=== PATIENT | male | born 1960 | race Caucasian/White ===

== ENCOUNTER 2018-11-25 06:42 | Day surgery (SDC) | payer OTHER ==
[2018-11-25] VITALS (12 sets, daily range): BP systolic 108–143; BP diastolic 67–82; PULSE 60–72; RESP 16–18; Ht 165.1 cm; Wt 76.9 kg
[~2018-11-25] VITALS: Ht 165.1 cm; Wt 76.9 kg
[2018-11-25] MEDS ORDERED: AMLO5TAB4 PO (07:29)
[2018-11-25] MEDS ORDERED: ATOR20TA38 PO (07:29)
[2018-11-25] MEDS ORDERED: ACETAZOLAMIDE 250 MG TAB PO PRN (07:30)
[2018-11-25] MEDS ORDERED: PHENYLephrine 2.5% 15 ML OPH OPER SCH (07:30)
[2018-11-25] MEDS ORDERED: TROPICAMIDE 1% 15 ML OPH OPER SCH (07:30)
[2018-11-25] MEDS ORDERED: TETRACAINE 0.5% 4 ML OPH OPER SCH (07:30)
[2018-11-25] MEDS ORDERED: ACETAMINOPHEN 500 MG TAB PO ONE (07:30)
[2018-11-25] MEDS ORDERED: BALANCED SALT SOLN OPH IRRIG 500 ML, EPINEPHrine 0.1 MG, GENTAMICIN 4 MG, VANCOMYCIN 10 MG IRR SCH ×4 (07:30)
[2018-11-25] MEDS ORDERED: LIDOCAINE 4% (MPF) 5 ML INJ INJ SCH (07:30)
[2018-11-25] MEDS ORDERED: NEOMYC/POLYMYX/DEXAM 3.5GM OPH OINT OPER ONE (07:30)
--- NOTE | 2018-11-25 08:27 | PREAC ---
Date/Time of Note Date/Time of Note DATE: 11/25/18 TIME: 08:26 Anesthesia Eval and Record Evaluation Time Pre-Procedure Interview DATE: 11/25/18 TIME: 08:26 Age 58 Sex male NPO: 8 hrs Preoperative diagnosis AGE RELATED CATARACT Planned procedure RIGHT EYE KPE W/IOL Past Medical History Past Medical History: Includes Cardio: HTN, Dyslipidemia Endo: Diabetes Surgery & Anesthesia Issues No known issue Meds Anticoagulation: No Beta Shubham within 24 hr: No Reason Beta Shubham not given: Pt. not on B-Shubham Reported Medications Atorvastatin Calcium* (Atorvastatin Calcium*) 20 Mg Tablet, 20 MG PO QHS, #30 TAB 11/25/18 Amlodipine Besylate* (Norvasc*) 5 Mg Tablet, 5 MG PO DAILY, TAB 11/25/18 Current Medications Tropicamide (Mydriacyl 1%) 1 drop Q5 MIN X3 OPER Last administered on 11/25/18at 07:47; Admin Dose 1 DROP; Start 11/25/18 at 07:30 Phenylephrine HCl (Ak-Dilate 2.5%) 1 drop Q5 MIN X 3 OPER Last administered on 11/25/18at 07:47; Admin Dose 1 DROP; Start 11/25/18 at 07:30 Tetracaine HCl (Tetracaine 0.5% Steri-Unit Evelyn) 2 drop ONCE (PRE-OP) OPER ; Start 11/25/18 at 07:30 Lidocaine (Xylocaine 4% (Mpf)) 5 ml INTRA-OP INJ ; Start 11/25/18 at 07:30 Sod Cl/Ca Cl/Mg Cl/Pot Cl/ Epinephrine/ Gentamicin Sulfate/ Vancomycin HCl INTRA-OP IRR ; Start 11/25/18 at 07:30 Acetazolamide (Diamox) 250 mg POST-OP PRN PO X1 IF TRABECULECTOMY PERFORMED; Start 11/25/18 at 07:30 Meds reviewed: Yes Allergies Coded Allergies: No Known Allergy (Unverified , 11/25/18) Allergies Reviewed: Yes Labs/Studies Labs Reviewed: Reviewed by anesthesiologist test: N/A Studies: ECG, CXR Pre-procedure Exam Last vitals Vital Signs Date Temp Pulse Resp B/P (MAP) Pulse Ox O2 O2 Flow FiO2 Time Delivery Rate 11/25/18 98.2 72 16 143/81 97 Room Air 08:06 (101) Airway: Adequate mouth opening Mallampati: Mallampati II Teeth: Normal Lung: Normal Heart: Normal ASA Physical Status ASA physical status: 2 Emergency: None Planned Anesthetic General/MAC: MAC Pre-operative Attestations Prior to commencing anesthesia and surgery, the patient was re-evaluated, there was verification of: *The patient's identity *The results of appropriate recent lab work and preoperative vital signs *The above evaluation not changing prior to induction *Anesthetic plan, risk benefits, alternative and complications discussed with patient/family; questions answered; patient/family understands, accepts and wishes to proceed. JULITA HERZOG November 25, 2018 08:27
[2018-11-25] MEDS ORDERED: MIDAZOLAM 1 MG/ML 2 ML INJ ONE (09:29)
[2018-11-25] MEDS ORDERED: LIDOCAINE 4% (MPF) 5 ML INJ ONE (10:04)
[2018-11-25] MEDS ORDERED: TRYPAN BLUE 0.5 ML SYG IO ONE (10:06)
[2018-11-25] MEDS ORDERED: TOBRAMYCIN/DEXAMETH 2.5 ML OPH ONE (10:10)
--- NOTE | 2018-11-25 10:31 | PAC ---
Date/Time of Note Date/Time of Note DATE: 11/25/18 TIME: 10:31 Post-Anesthesia Notes Post-Anesthesia Note Last documented vital signs Vital Signs Date Temp Pulse Resp B/P (MAP) Pulse Ox O2 O2 Flow FiO2 Time Delivery Rate 11/25/18 98.2 72 16 143/81 97 Room Air 08:06 (101) Activity: WNL Respiratory function: WNL Cardiovascular function: WNL Mental status: Baseline Pain reasonably controlled: Yes Hydration appropriate: Yes Nausea/Vomiting absent: Yes JULITA HERZOG November 25, 2018 10:31
--- NOTE | 2018-11-25 10:42 | HPN ---
Date/Time of Note Date/Time of Note DATE: 11/25/18 TIME: 10:41 Interval H&P Admission Note Pt. seen H&P reviewed: No system changes BENJAMÍN MCDONALD MD November 25, 2018 10:42
--- NOTE | 2018-11-25 10:49 | OPR ---
Date/Time of Note Date/Time of Note DATE: 11/25/18 TIME: 10:45 Operative Report Preoperative Diagnosis Cataract Right Eye Postoperative Diagnosis Cataract Right Eye Operation/Procedure Performed Cataract Extraction with Lens Implant Righrt Eye Surgeon see signature line Aquatics Assistant Department Head none Anesthesia Type: MAC Estimated Blood Loss: none Transfusion none Specimen none Grafts/Implants none Complications none Procedure Description As Above BENJAMÍN MCDONALD MD November 25, 2018 10:49
== END 2018-11-25 11:44 | disposition home or self-care (01) ==
LOC: SDS 06:42 → EDSEX 10:00 → SDS 11:44
PROVIDERS: ATTEND Ophthalmology
DX: H25.11 Age-related nuclear cataract, right eye (principal); I10 Essential (primary) hypertension; E78.5 Hyperlipidemia, unspecified
CPT/HCPCS: 66984; 71045; 82962; J0171; J1580; J2250; J3370; V2632